=== PATIENT | female | born 2000 ===

== ENCOUNTER 2023-12-27 16:17 | Inpatient (IN) | payer MEDICAID, OTHER ==
[2023-12-27] MEDS ORDERED: IBUPROFEN 600 MG TAB PO PRN (21:40)
[2023-12-27] MEDS ORDERED: LORazepam 2 MG/ML INJ IM PRN (21:40)
[2023-12-27] MEDS ORDERED: OLANZapine 10 MG VIAL IM PRN (21:40)
[2023-12-27] MEDS ORDERED: MAGNESIUM HYDROXIDE 2,400 MG/30 ML CUP PO PRN (21:40)
[2023-12-27] MEDS ORDERED: MAG HYDROX/AL HYDROX/SIMETH 355 ML BOTTLE PO PRN (21:40)
[2023-12-27] MEDS ORDERED: ACETAMINOPHEN TAB 325 MG TAB PO PRN (21:40)
[2023-12-27] MEDS: NICOTINE 14MG/24HR PATCH TRANSDERM SCH (23:43)
[2023-12-28] MEDS: LORazepam 1 MG TAB PO PRN (00:10)
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
[2023-12-28 09:26] LABS: Basophils % (A) 0 %; Eosinophils # (A) 0.1 k/uL (0-0.7); Eosinophils % (A) 2 %; HCT 43.8 % (34.0-46.0); HGB 14.3 gm/dL (11.4-16.0); Lymphocytes # (A) 2.1 k/uL (1.0-4.8); Lymphocytes % (A) 30 %; MCH 31.4 pg (25.0-35.0); MCHC 32.6 g/dL (31.0-37.0); MCV 96.5 fL (80.0-100.0); Mean Platelet Volume 9.1; Monocytes # (A) 0.5 k/uL (0-1.0); Monocytes % (A) 7 %; Neutrophils # (A) 4.1 k/uL (1.3-7.7); Neutrophils % (A) 59 %; Platelet Count 230 k/uL (150-450); RBC 4.54 m/uL (3.80-5.40); RDW 12.7 % (11.5-15.5)
[2023-12-28 09:43] LABS: ALT 161 U/L (4-34); AST 135 U/L (14-36); African American GFR (CKD) >90 (>60 ml/min/1.73 sqM); Alkaline Phosphatase 86 U/L (38-126); Anion Gap 3 mmol/L; Bilirubin, Delta 0.3 mg/dL (0.0-0.2); Bilirubin,Unconjugated 0.2 mg/dL (0.0-1.1); Blood Urea Nitrogen 12 mg/dL (7-17); Calcium 8.8 mg/dL (8.4-10.2); Carbon Dioxide 29 mmol/L (22-30); Chloride 107 mmol/L (98-107); Glucose 54 mg/dL (74-99); Non-African American GFR(CKD) >90 (>60 ml/min/1.73 sqM); Potassium 4.2 mmol/L (3.5-5.1); Sodium 139 mmol/L (137-145); Total Bilirubin 0.5 mg/dL (0.2-1.3); Total Protein 6.8 g/dL (6.3-8.2)
[2023-12-28] MEDS: OLANZapine 5 MG TAB PO PRN (10:53)
--- NOTE | 2023-12-28 13:11 | P.MDCNMH ---
<Josse Campos - Last Filed: 12/28/23 12:53> History of Present Illness H&P Date: 12/28/23 History of Presenting Illness: Patient is a 23-year-old female past medical history of polysubstance abuse with crack cocaine, methamphetamines, marijuana, and alcohol and reports of previous diagnosis of schizophrenia. She is currently admitted to the mental health unit under psychiatry team. We were consulted for medical H&P and evaluation during her hospitalization. Patient seen and fully evaluated on mental health unit. She was ambulatory with a steady gait. Patient reports feeling extremely anxious but otherwise denies having any complaints at this time including headache, lightheadedness, dizziness, chest pain, palpitations, shortness of breath, cough or congestion, nausea, vomiting, or any other complaints. Patient denies chance of at this time but was unsure when first day of last menstrual cycle was. Patient reports to daily nicotine use smoking approximately 1 pack of cigarettes daily. Denies having any suicidal or homicidal ideations, does report history of previous diagnosis of schizophrenia but also denies having any visual/auditory/tactile hallucinations at this time. Review of systems: Pertinent positives and negatives as discussed in HPI, a complete review of systems was performed and all other systems are negative. Physical exam: Vital signs reviewed and stable. General: Nontoxic, no distress and appears stated age. Derm: Skin warm and dry, normal coloration for ethnicity. Head: Atraumatic, normocephalic and symmetric. Eyes: EOMs intact, no lid lag, and anicteric sclera Mouth: no lip lesions, mucus membranes moist Cardiovascular: regular rate and rhythm with normal S1S2, no murmur, positive posterior tibial pulses bilaterally, and cap refill < 2 seconds. Lungs: Respirations even, regular, and unlabored on room air. Lungs CTA yuki aterally, no rhonchi, no rales, no wheezing, and no accessory muscle usage. Abdominal: soft, nontender to palpation, no guarding, no appreciable organomegaly Ext: ROM intact. No gross muscle atrophy, no edema, no contractures Neuro: Speech clear, face symmetrical and CN II-XII grossly intact with no noted focal neuro deficits, and no tremors noted. Psych: Alert and oriented to person, place, time, and situation. Patient was cooperative and answered questions appropriately but appears somewhat anxious with a difficult time concentrating. Assessment and Plan of Care: Elevated liver enzymes, unclear etiology possibly secondary to alcohol abuse Liver enzymes elevated with delta bilirubin of 0.3, AST of 135, and ALT of 161. Patient with history of IVDA with methamphetamine use, order placed for acute hepatitis panel. Will repeat CMP to follow-up/monitor for improvement of liver enzymes. Hypoglycemia Blood glucose 54. Discussed with nursing staffpsychiatry team and patient pl aced on glycemic with [id number] glucose checks every 6 hours to monitor for resolution and/or further episodes of hypoglycemia. Polysubstance abuse Urine drug screen ordered. Highly recommend cessation of use and consideration of inpatient substance a buse program upon discharge from mental health unit. Monitor for signs/symptoms of withdrawal Nicotine dependence Recommend smoking cessation and continuation of nicotine patch 14 mg daily. 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 Data and imaging reviewed: Labs reviewed. CBC unremarkable with WBC count of 7.0, hemoglobin 14.3, platelet count of 230. BMP unremarkable with the exception of showing hypoglycemia with blood glucose of 54. Liver profile showing elevated delta bilirubin of 0.3, AST of 135, and ALT of 161. TSH normal findings at 2.010. He moglobin A1c 5.3%. Order placed for urine hCG, will follow-up on results. Vital signs reviewed. Blood pressure 119/64, heart rate 103, respiratory rate 18, temp 98.0 F, and SpO2 of 98% on room air. Thank you for allowing us to participate in the care of this pleasant patient. Do not hesitate to contact us with questions. Someone can be reached from the [facility] hospitalist group all hours of the day at [phone] or via perfect serve. Patient was seen independently by Nurse Practitioner. This document was prepared using [employer] dictation software. Please allow for errors in ethics instructor while rare they do occur. Past Medical History Past Medical History: No Reported History History of Any Multi-Drug Resistant Organisms: None Reported Past Surgical History: No Surgical Hx Reported Past Anesthesia/Blood Transfusion Reactions: No Reported Reaction Past Psychological History: Bipolar, Schizophrenia Smoking Status: Current every day smoker Past Alcohol Use History: Daily Past Drug Use History: IV Drug Use, Methamphetamine Medications and Allergies Allergies Allergy/AdvReac Type Severity Reaction Status Date / Time No Known Allergies Allergy Verified 12/27/23 21:39 Physical Exam Vitals: Vital Signs Temp Pulse Resp BP Pulse Ox 12/28/23 06:06 98.0 F 103 H 18 119/64 98 12/27/23 21:38 98.2 F 83 16 118/83 95 Intake and Output 12/27/23 12/28/23 12/28/23 22:59 06:59 14:59 Other: Weight 56 kg Cranial Nerve Examination - Cranial Nerves Cranial Nerve II- Optic: Intact Cranial Nerve III- Oculomotor: Intact Cranial Nerve IV- Trochlear: Intact Cranial Nerve V- Trigeminal: Intact Cranial Nerve - Abducens: Intact Cranial Nerve VII- Facial: Intact Cranial Nerve VIII- Auditory: Intact Cranial Nerve IX- Glossopharyngeal: Intact Cranial Nerve X- Vagus: Intact Cranial Nerve XI- Accessory: Intact Cranial Nerve XII- Hypoglossal: Intact Results CBC & Chem 7: 12/28/23 08:51 12/28/23 08:51 Labs: Abnormal Lab Results - Last 24 Hours (Table) 12/28/23 Range/Units 08:51 Glucose 54 L (74-99) mg/dL Delta Bilirubin 0.3 H (0.0-0.2) mg/dL AST 135 H (14-36) U/L ALT 161 H (4-34) U/L <Denis Freeman - Last Filed: 12/29/23 18:16> History of Present Illness Josse Campos NP rendered care for this patient independently, reviewed the findings and plan as documented in the note above. I did not physically speak w ith or examine the patient on this date. Physical Exam Vitals: Vital Signs Pulse BP 12/29/23 08:44 100 109/55 Results CBC & Chem 7: 12/28/23 08:51 12/29/23 09:23 Labs: Abnormal Lab Results - Last 24 Hours (Table) 12/28/23 12/29/23 12/29/23 Range/Units 18:54 09:23 12:47 POC Glucose (mg/dL) 123 H 125 H (70-110) mg/dL AST 147 H (14-36) U/L ALT 187 H (4-34) U/L Total Protein 6.2 L (6.3-8.2) g/dL
[2023-12-28 13:14] LABS: Glucose,Whole Blood 101 mg/dL (70-110)
[2023-12-28 13:18] LABS: Appearance,Urine Clear (Clear); Bilirubin,Urine Negative (Negative); Blood,Urine Negative (Negative); Color,Urine Colorless; Glucose,Urine (UA) Negative (Negative); Ketones,Urine Negative (Negative); Leukocyte Esterase,Urine Negative (Negative); Nitrite,Urine Negative (Negative); Protein,Urine Negative (Negative); Specific Gravity,Urine 1.001 (1.001-1.035); Urobilinogen,Urine <2.0 mg/dL (<2.0)
[2023-12-28 18:56] LABS: Glucose,Whole Blood 123 mg/dL (70-110)
[2023-12-29 01:31] LABS: Glucose,Whole Blood 96 mg/dL (70-110)
[2023-12-29 08:27] LABS: Glucose,Whole Blood 86 mg/dL (70-110)
[2023-12-29 08:53] LABS: Chol/HDL Ratio 2.69 Ratio; LDL Cholesterol,Calculated 69.9 mg/dL (0.0-131.0)
[2023-12-29 10:02] LABS: ALT 187 U/L (4-34); AST 147 U/L (14-36); African American GFR (CKD) >90 (>60 ml/min/1.73 sqM); Albumin 3.6 g/dL (3.5-5.0); Alkaline Phosphatase 83 U/L (38-126); Anion Gap 4 mmol/L; Blood Urea Nitrogen 14 mg/dL (7-17); Calcium 8.7 mg/dL (8.4-10.2); Carbon Dioxide 28 mmol/L (22-30); Chloride 105 mmol/L (98-107); Glucose 75 mg/dL (74-99); Magnesium 1.9 mg/dL (1.6-2.3); Non-African American GFR(CKD) >90 (>60 ml/min/1.73 sqM); Potassium 3.9 mmol/L (3.5-5.1); Sodium 137 mmol/L (137-145); Total Bilirubin 0.8 mg/dL (0.2-1.3); Total Protein 6.2 g/dL (6.3-8.2)
[2023-12-29] MEDS: SERTRALINE 50 MG TAB PO SCH (12:35)
--- NOTE | 2023-12-29 12:35 | P.PN ---
Progress Note - Text Progress Note Date: 12/29/23 Interval History: Patient was seen [wandering the hallways] and was directable and agreeable to speak with pattern chart writer in the office. Patient states that she is super sleepy. She claims that she is very anxious and is decribging mood instability and irritability. She states that she is not sleeping well at night. Patient asked pattern chart writer for xanax, pattern chart writer explained to the patient that controlled medications will not be prescribed. Medical Assistant Instructor went over different medication options, patient agreeable to start zoloft and seroquel. Patient claims that her appetite is fine. At this time patient denies any suicidal or homicidal ideations, intent or plan. Patient denies any auditory, visual hallucinations and denies any paranoia or delusions. Patient denies any side effects from the medications and has been compliant with meds. Mental Status Exam: General Appearance: [Patient appears to be stated age is alert, directable, and cooperative. Disheveled, curly hair, wearing her own clothes.] Behavior: [Patient is calmly seated without any agitated behavior.] Speech: Patient's speech is fluent and nonpressured. Mood/Affect: Mood is anxious, affect is congruent and constricted. Suicidality/Homicidality: Patient denies having any suicidal or homicidal ideation intent or plan. Perceptions: Patient denies any visual hallucinations [and denies any auditory hallucinations] Though content/process: [There is no evidence of any delusional thought content and thought process is linear and goal-directed. 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 Patient has [not] signed [adult voluntary form and] [medication consent] and was placed in patient's chart. -Medications: start Zoloft 50mg daily for mood/anxiety, Seroquel 50mg qhs for mood/sleep, visteral 50mg [id number] PRN for anxiety -When necessary Ativan and Haldol for agitation/aggression. -NRT - [nicotine patch] -SW on board for discharge planning. Encouraged the patient to participate in milieu.
[2023-12-29 12:48] LABS: Glucose,Whole Blood 125 mg/dL (70-110)
[2023-12-29] MEDS: LORazepam 1 MG TAB PO PRN (18:14)
[2023-12-29] MEDS: hydrOXYzine pamoate 25 MG CAP PO PRN (20:52)
[2023-12-29] MEDS: QUEtiapine 50 MG TAB PO SCH (20:52)
[2023-12-29] MEDS ORDERED: ARIPiprazole 5 MG TAB PO SCH (21:00)
--- NOTE | 2023-12-30 11:32 | P.PN ---
Progress Note - Text Progress Note Date: 12/30/23 Interval History: Patient was seen wandering the hallways and was directable and agreeable to sp rafat with advertising copywriter in the office. Patient states that she is doing pretty good today. She states that she slept well last night. She did ask for Zyprexa for anxiety last night. Complex Care Nurse encouraged patient to use the visteral that is ordered for anxiety. Patient claims that her appetite is fine. She claims that she is feeling fairly tired today, appears to be somewhat lethargic. She does appear to have improvement in her irritability and agitation today. At this time patient denies any suicidal or homicidal ideations, intent or plan. Patient denies any auditory, visual hallucinations and denies any paranoia or delusions. Patient denies any side effects from the medications and has been compliant with meds. Mental Status Exam: General Appearance: Patient appears to be stated age is alert, directable, and cooperative. Disheveled, curly hair, wearing her own clothes. Behavior: Patient is calmly seated without any agitated behavior. More directable and calmer today. Speech: Patient's speech is fluent and nonpressured. [place]. Mood/Affect: Mood is pretty good, affect is congruent and constricted. mildly improving Suicidality/Homicidality: Patient denies having any suicidal or homicidal ideation intent or plan. 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 -Medications: Zoloft 50mg daily for mood/anxiety, increase Seroquel 100mg qhs for mood/sleep, visteral 50mg [id number] PRN for anxiety -When necessary Ativan and Haldol for agitation/aggression. -NRT -nicotine patch -SW on board for discharge planning. Encouraged the patient to participate in milieu. Likely discharge if patient continues to improve
[2023-12-30] MEDS ORDERED: NICOTINE GUM (POLACRILEX) 2 MG GUM BUCCAL ONE (17:51)
[2023-12-30] MEDS: QUEtiapine 100 MG TAB PO SCH (20:41)
[2023-12-31 06:33] VITALS: BP 101/46; PULSE 63; RESP 14; TEMP 97.8
--- NOTE | 2023-12-31 11:06 | P.PN ---
Progress Note - Text Progress Note Date: 12/31/23 Interval History: Patient was seen wandering the hallways and was directable and agreeable to sp rafat with physician underwriter in the office. Patient states that she is doing well today.She states that she slept well last night. She is focused on discharge. She continues to have improvement in her irritability and agitation today. Appears to be more future oriented today. Has been going to some groups. At this time patient denies any suicidal or homicidal ideations, intent or plan. Patient denies any auditory, visual hallucinations and denies any paranoia or delusions. Patient denies any side effects from the medications and has been compliant with meds. Mental Status Exam: General Appearance: Patient appears to be stated age is alert, directable, and cooperative. Disheveled, curly hair, wearing her own clothes. Behavior: Patient is calmly seated without any agitated behavior. More directable and calmer today. Speech: Patient's speech is fluent and nonpressured. improving mildly Mood/Affect: Mood is pretty good, affect is congruent and constricted. mildly improving Suicidality/Homicidality: Patient denies having any suicidal or homicidal ideation intent or plan. 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 -Medications: Zoloft 50mg daily for mood/anxiety, Seroquel 100mg qhs for mood/sleep, visteral 50mg [id number] PRN for anxiety -When necessary Ativan and Haldol for agitation/aggression. -NRT -nicotine patch -SW on board for discharge planning. Encouraged the patient to participate in milieu. Likely discharge tomorrow to her friend's house if patient continues to improve
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
[2024-01-02 18:54] LABS: Hepatitis A Antibody IgM Nonreactive (Nonreactive); Hepatitis B Core IgM Nonreactive (Nonreactive); Hepatitis B Surface Antigen Nonreactive (Nonreactive); Hepatitis C IgG Antibody Nonreactive (Nonreactive)
== END 2024-01-01 13:45 | disposition home or self-care (01) | DRG 882 ==
LOC: 3MHU 21:28
PROVIDERS: ADMIT Psychiatry & Neurology Psychiatry; ATTEND Psychiatry & Neurology Psychiatry
DX: F43.25 Adjustment disorder with mixed disturbance of emotions and conduct (principal); F41.9 Anxiety disorder, unspecified; E16.2 Hypoglycemia, unspecified; K59.00 Constipation, unspecified; R45.1 Restlessness and agitation; F17.210 Nicotine dependence, cigarettes, uncomplicated; F20.9 Schizophrenia, unspecified; F12.10 Cannabis abuse, uncomplicated; F10.10 Alcohol abuse, uncomplicated; F15.10 Other stimulant abuse, uncomplicated; F14.14 Cocaine abuse with cocaine-induced mood disorder; K30 Functional dyspepsia; Z28.21 Immunization not carried out because of patient refusal; Z56.0 Unemployment, unspecified; Z79.899 Other long term (current) drug therapy
CPT/HCPCS: 80053; 80061; 80074; 81003; 81025; 82248; 83036; 83735; 84443; 85025